=== PATIENT | male | born 1940 | race Caucasian/White ===

== ENCOUNTER → 2017-05-31 | Outpatient (CLI) | payer MEDICARE ==
[2017-05-31 08:33] LABS: Appearance,Urine Clear (Clear); Bilirubin,Urine Negative (Negative); Blood,Urine Negative (Negative); Color,Urine Light Yellow; Glucose,Urine (UA) Negative (Negative); Ketones,Urine Negative (Negative); Leukocyte Esterase,Urine Negative (Negative); Nitrite,Urine Negative (Negative); PH, Urine 5.5 (5.0-8.0); Protein,Urine Negative (Negative); Specific Gravity,Urine 1.011 (1.001-1.035); Urobilinogen,Urine <2.0 mg/dL (<2.0)
[2017-05-31 08:37] LABS: Basophils % (A) 0 %; Eosinophils # (A) 0.2 k/uL (0-0.7); Eosinophils % (A) 2 %; HCT 46.4 % (39.0-53.0); HGB 15.1 gm/dL (13.0-17.5); Lymphocytes # (A) 2.2 k/uL (1.0-4.8); Lymphocytes % (A) 25 %; MCH 30.8 pg (25.0-35.0); MCHC 32.5 g/dL (31.0-37.0); MCV 94.6 fL (80.0-100.0); Mean Platelet Volume 7.6; Monocytes # (A) 0.5 k/uL (0-1.0); Monocytes % (A) 6 %; Neutrophils # (A) 5.7 k/uL (1.3-7.7); Neutrophils % (A) 65 %; Platelet Count 264 k/uL (150-450); RDW 13.2 % (11.5-15.5); WBC 8.8 k/uL (3.8-10.6)
[2017-05-31 08:52] LABS: Potassium 5.2 mmol/L (3.5-5.1)
== END | disposition home or self-care (01) ==
LOC: LABPAT 07:37
PROVIDERS: ATTEND Surgery
DX: Z01.818 Encounter for other preprocedural examination (principal); I10 Essential (primary) hypertension; E11.9 Type 2 diabetes mellitus without complications; I74.3 Embolism and thrombosis of arteries of the lower extremities; I25.2 Old myocardial infarction
CPT/HCPCS: 36415; 80051; 81003; 82565; 82947; 84520; 85025; 86850; 86900; 86901; 93005

== ENCOUNTER 2017-06-07 05:32 | Inpatient (IN) | payer MEDICARE ==
[2017-05-30 17:44] VITALS: BMI 29.9
[~2017-06-07 05:32] MED LIST: ceFAZolin IN SWFI 2 GM/20 ML SYRINGE IVP ONE
[2017-06-07] MEDS ORDERED: LIDOCAINE 1% 20 ML VIAL (10MG/ML) FOR IV START INTRADERMA PRN (05:47)
[2017-06-07] MEDS ORDERED: SCOPOLAMINE 1.5MG/72HR PATCH TRANSDERM ONE (05:47)
[2017-06-07] MEDS ORDERED: ONDANSETRON ODT 4 MG TAB PO ONE (05:47)
[2017-06-07] MEDS ORDERED: MIDAZOLAM 2 MG/2 ML VIAL IV PRN (05:47)
[2017-06-07] MEDS ORDERED: DEXAMETHASONE SOD PHOSPHATE 10 MG/ML 1 ML VIAL IV ONE (05:47)
[2017-06-07] MEDS ORDERED: MORPHINE SULFATE 4 MG/0.8 ML SYRINGE (INJ) IV PRN (05:47)
[2017-06-07] MEDS: LACTATED RINGERS 1,000 ML IV SCH ×2 (06:45→23:11)
[2017-06-07 06:55] LABS: Glucose,Whole Blood 178 mg/dL (75-99)
[2017-06-07] MEDS ORDERED: ePHEDrine SULFATE/0.9% NACL/PF 50 MG/5 ML SYRINGE IV ONE (07:30)
[2017-06-07] MEDS ORDERED: SODIUM CHLORIDE 0.9% 500 ML with HEPARIN SODIUM,PORCINE 5,000 UNIT IRRIGATION ONE ×2 (07:30)
[2017-06-07] MEDS ORDERED: fentaNYL (PF) 50 MCG/ML 2 ML AMP ONE (07:30)
[2017-06-07] MEDS ORDERED: GLYCOPYRROLATE 0.2 MG/ML 2 ML VIAL ONE (07:30)
[2017-06-07] MEDS ORDERED: MIDAZOLAM 2 MG/2 ML VIAL ONE (07:30)
[2017-06-07] MEDS ORDERED: SUCCINYLCHOLINE CHLORIDE 100 MG/5 ML SYR IV ONE (07:30)
[2017-06-07] MEDS ORDERED: ROCURONIUM BROMIDE 10 MG/ML 10 ML VIAL IV ONE (07:30)
[2017-06-07] MEDS ORDERED: PROTAMINE SULFATE 10 MG/ML 5 ML VIAL IV ONE (07:30)
[2017-06-07] MEDS ORDERED: PHENYLEPHRINE-0.9% NACL SYG 1 MG/10 ML SYRINGE ONE (07:30)
[2017-06-07] MEDS ORDERED: LIDOCAINE 1% INJ 10MG/ML (20 ML MDV) ONE (07:30)
[2017-06-07] MEDS ORDERED: THROMBIN (BOVINE) 5,000 UNIT VIAL TOPICAL ONE (07:30)
[2017-06-07] MEDS ORDERED: HEPARIN SODIUM,PORCINE 10,000 UNIT/ML 1 ML VIAL ONE (07:30)
[2017-06-07] MEDS ORDERED: PROPOFOL 10 MG/ML 20 ML VIAL IV ONE (07:30)
[2017-06-07] MEDS ORDERED: NEOSTIGMINE 1 MG/ML 10 ML VIAL ONE (07:30)
[2017-06-07] MEDS ORDERED: ceFAZolin IN SWFI 2 GM/20 ML SYRINGE IVP ONE (07:40)
[2017-06-07] MEDS ORDERED: LACTATED RINGERS 1,000 ML IV ONE ×3 (08:13→15:01)
[2017-06-07] MEDS ORDERED: SODIUM CHLORIDE 0.9% 50 ML with ceFAZolin 2,000 MG IV ONE ×2 (11:27)
[2017-06-07] MEDS ORDERED: MORPHINE SULFATE 4MG/4ML SYRG IVP ONE (13:48)
[2017-06-07] MEDS ORDERED: MEPERIDINE 50 MG/ML SYRINGE IVP ONE (14:21)
--- NOTE | 2017-06-07 16:12 | P.OP ---
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 Procedure(s) Performed: Right femoral to posterior tibial in situ vein bypass graft Right common femoral endarterectomy. Implants: None Anesthesia: spinal (With conversion to general.) Surgeon: Manas Clemons Estimated Blood Loss (ml): 250 (ml) Pathology: other (right common femoral plaque) Disposition: floor Indications for Procedure: Severe lifestyle limiting right calf claudication Description of Procedure: Patient was brought the upper and placed in supine position. He receiveds anesthetic delivered by the department of anesthesiology. Patient did receive intravenously administered prophylactic antibiotics in the perioperative phase. Gao catheter is placed to gravity drainage. The right lower extremity sterilely prepped and draped in the usual manner. A skin incision was made over the right femoral artery and carried down through subjacent tissues. The lymphatic layer was divided laterally swept medially. Hemostasis was achieved using electrocautery. The femoral artery was identified. Artery was dissected free of investing tissues. This was found to be the proximal portion of the superficial femoral artery. No pulse was noted within the superficial femoral artery. The dissection was then carried cephalad. The profundus femoris was identified dissected free of investing tissues and encircled Vesseloops. The common femoral artery was then dissected free of investing tissues up to the inguinal ligament. It was encircled with Vesseloops proximally. Significant posterior plaquing was identified. The right great saphenous vein was identified in its proximal portion. It was dissected free of investing tissues. The vein appeared adequate for bypass purposes. Side branches were doubly ligated with silk suture and divided between the ligatures. The confluence of the great saphenous vein with the common femoral vein was identified. The vein was mobilized as far distally as possible. The wound was then packed with antibiotic-soaked gauze and attention was turned to the calf area. A skin incision was made along the medial aspect of the right calf in its proximal mid segment. Care was taken to avoid injury to the great saphenous vein. Incision was deepened through subjacent tissues. The distal popliteal space was entered and the distal popliteal and proximal tibial arterial segments was identified. These vessels were without pulse. Review angiogram had demonstrated the posterior tibial artery to be a good target vessel. The artery was identified in its mid calf segment. It was at this level of the artery was soft and pliable. The artery was then encircled with Vesseloops both proximally and distally. Crossing veins were either doubly ligated with silk suture or clipped with vascular clips and divided. The great saphenous vein at the distal portion of the calf incision was identified and dissected free of investing tissues. The vein appeared adequate for bypass purposes. It was divided as far distally as possible after being clipped with vascular clips. It was marked to avoid any potential twisting in the future. We then mobilized as far proximal as possible. Attention was turned to the inguinal incision. The patient was systemically heparinized and ACT is were drawn and followed. Repeat heparin dosage was given as appropriate based on repeat ACT results. Peak ACT was 260. The great saphenous vein and its confluence with the deep system was identified. It was clamped with a hemostat and divided. The venotomy was oversewn with 6-0 Prolene suture. The great saphenous vein was mobilized as far distally as possible. Was clear that it would not reach the common femoral artery and as such it was necessary to perform an endarterectomy on the common femoral artery and into the superficial femoral artery where the vein would reach without undue tension. As such a vascular clamp was utilized to occlude the common femoral artery at the inguinal ligament. Vesseloops around the profundus were drawn closed and arteriotomy was made in the common and extended from the proximal common down into the proximal 3 cm of the superficial femoral artery. Endarterectomy was then performed on the segment. The plaque was sent to pathology. The remaining luminal surface was inspected for any loose or free- floating material and this was removed. Arteriotomy closure with 5-0 Prolene suture was completed through the common femoral artery length. The anastomotic line was tested and 2 points of bleeding were identified and these were controlled with Prolene suture. Good inflow was noted. The great saphenous vein was inspected. First valve was lysed under direct visualization. The vein reach the femoral artery an end-to-side anastomosis between the artery and the vein was performed with 6-0 Prolene suture. Just prior to completion of the anastomotic line the artery was flushed and no thrombus was retrieved. The anastomotic line was completed and flow was restored through the common femoral and profundus and into the vein bypass graft. Excellent pulse was identified. Attention was turned to the distal end of the vein graft where a LeMaitre valvulotome was passed from the distal aspect to the proximal portion of the vein graft. The valvulotome was then utilized to lyse the valves. Excellent pulsatile flow was identified the distal end of the vein graft. The vein graft was flushed with heparinized saline solution and occluded. Vessel loops surrounding the posterior tibial artery were drawn closed. Arteriotomy was made and extended with Pott Copeland scissors. Backbleeding was identified. The artery was then flushed with heparinized saline solution. The vein was cut the appropriate length and spatulated match the arteriotomy. End- to-side anastomosis was created with 6-0 Prolene suture. Just prior to completion of the anastomotic line the vein graft was flushed and the artery was backbled and no thrombus was retrieved in either situation. The anastomotic line was completed and flow was then restored through the vein graft and the artery. Wave Doppler demonstrated good biphasic flow characteristics. Real-time ultrasound was then utilized to interrogate the great saphenous vein looking for any patent side branches. Where identified skin monisha was made. At each skin monisha a skin incision was made carried down through the subcu change tissues to the level of the vein was reached. Side branches were then ligated with silk suture. All wounds were inspected for hemostasis. There was stasis was judged to be adequate. The overall irrigated with antibiotic containing solution. A deep tissues were closed in multiple layers in the inguinal area and skin was reapproximated with a running intradermal suture of 4-0 Vicryl. Steri-Strips were applied. All other wounds were treated with 3-0 Vicryl suture to close the deep tissues and skin edges were reapproximated with skin honey. Proper dressings were applied. Patient tolerated the procedure well and was transferred to the recovery area satisfactory and stable condition.
[2017-06-07] MEDS: ceFAZolin IN SWFI 2 GM/20 ML SYRINGE IVP SCH ×2 (16:39→23:17)
[2017-06-07] MEDS: HEPARIN SODIUM,PORCINE 5,000 UNIT/ML 1 ML VIAL SQ SCH ×2 (16:39→23:18)
[2017-06-07] MEDS: HYDROcodone/APAP 7.5-325MG 1 EACH TAB PO PRN (16:40)
[2017-06-07] MEDS: glipiZIDE 10 MG TAB PO SCH (16:40)
[2017-06-07] MEDS: ONDANSETRON 4 MG/2 ML VIAL IVP PRN (17:58)
[2017-06-07] MEDS: SODIUM CHLORIDE 0.9% 1,000 ML IV SCH (17:58)
[2017-06-07 18:06] LABS: Glucose,Whole Blood 195 mg/dL (75-99)
[2017-06-07] MEDS: METOPROLOL TARTRATE 50 MG TAB PO SCH (19:52)
[2017-06-07] MEDS: ATORVASTATIN 40 MG TAB PO SCH (19:52)
[2017-06-07 21:13] LABS: Glucose,Whole Blood 181 mg/dL (75-99)
[2017-06-08] MEDS: HYDROcodone/APAP 7.5-325MG 1 EACH TAB PO PRN ×3 (03:22→21:14)
[2017-06-08 06:09] LABS: HCT 37.3 % (39.0-53.0); MCH 29.6 pg (25.0-35.0); MCHC 30.8 g/dL (31.0-37.0); Mean Platelet Volume 9.2; Platelet Count 196 k/uL (150-450); RBC 3.88 m/uL (4.30-5.90); RDW 13.4 % (11.5-15.5); WBC 9.9 k/uL (3.8-10.6)
[2017-06-08 06:16] LABS: HGB 11.5 gm/dL (13.0-17.5)
[2017-06-08 06:19] LABS: Glucose,Whole Blood 149 mg/dL (75-99)
[2017-06-08] MEDS: glipiZIDE 10 MG TAB PO SCH ×2 (06:21→17:23)
[2017-06-08] MEDS: MAGNESIUM OXIDE 400 MG TAB PO SCH (08:46)
[2017-06-08] MEDS: LINAGLIPTIN 5 MG TABLET PO SCH (08:47)
[2017-06-08] MEDS: HEPARIN SODIUM,PORCINE 5,000 UNIT/ML 1 ML VIAL SQ SCH ×3 (08:47→23:11)
[2017-06-08] MEDS: ALLOPURINOL 300 MG TAB PO SCH (08:47)
[2017-06-08] MEDS: METOPROLOL TARTRATE 50 MG TAB PO SCH ×2 (08:47→23:11)
[2017-06-08] MEDS: ASPIRIN 81 MG PO SCH (08:47)
[2017-06-08] MEDS: ceFAZolin IN SWFI 2 GM/20 ML SYRINGE IVP SCH ×3 (09:00→23:11)
[2017-06-08] MEDS ORDERED: NON-FORMULARY DRUG (Omega-3 Fatty Acids/Fish Oil [Fish Oil 1,000 Mg Softgel] 1 EACH) PO SCH (09:00)
[2017-06-08] MEDS ORDERED: EZETIMIBE 10 MG TAB PO SCH (09:00)
[2017-06-08] MEDS ORDERED: LISINOPRIL 10 MG TAB PO SCH (09:00)
[2017-06-08] MEDS ORDERED: NON-FORMULARY DRUG (Ubidecarenone [Co Q-10] 200 MG) PO SCH (09:00)
[2017-06-08] MEDS: ONDANSETRON 4 MG/2 ML VIAL IVP PRN ×2 (10:43→22:10)
[2017-06-08] MEDS ORDERED: ACETAMINOPHEN TAB 325 MG TAB PO PRN (10:52)
[2017-06-08 11:52] LABS: Glucose,Whole Blood 256 mg/dL (75-99)
--- NOTE | 2017-06-08 12:01 | P.PN ---
Subjective Progress Note Date: 06/08/17 Principal diagnosis: Postoperative day 1 right femoral tibial bypass Patient was seen and examined. Complaining of pain at the surgical sites. Also complaining of some nausea when taking pain medication. He states his pain in his right foot is improved since his surgery. Feels like he can move his toes better. He denies any fevers, chills, chest pain or shortness of breath. He does states he ambulated this morning with physical therapy. Objective - Vital Signs Vital signs: Vital Signs Temp 98.2 F 06/08/17 08:00 Pulse 105 H 06/08/17 08:00 Resp 20 06/08/17 08:00 BP 119/68 06/08/17 08:00 Pulse Ox 93 L 06/08/17 08:00 Intake & Output 06/07/17 06/08/17 06/08/17 18:59 06:59 18:59 Intake Total 2440 240 Output Total 1525 1100 Balance 915 -1100 240 Weight 96 kg Intake: IV 2200 Oral 240 240 Output: Urine 1275 1100 Estimated Blood Loss 250 Other: Voiding Method Indwelling Catheter # Voids 0 - Exam Right lower extremity surgical site dressings are intact. There is small amount of blood-tinged staining on the femoral dressing. Patient's leg is warm to touch at the medial thigh and medial knee areas. He has a palpable pulse at his bypass graft. Multiphasic signal noted in the posterior tibial artery. - Labs CBC & Chem 7: 06/08/17 05:50 06/07/17 06:45 Labs: Abnormal Lab Results - Last 24 Hours (Table) 06/07/17 06/07/17 06/08/17 Range/Units 17:57 21:11 05:50 RBC 3.88 L (4.30-5.90) m/uL Hgb 11.5 L D (13.0-17.5) gm/dL Hct 37.3 L (39.0-53.0) % MCHC 30.8 L (31.0-37.0) g/dL POC Glucose (mg/dL) 195 H 181 H (75-99) mg/dL 06/08/17 06/08/17 Range/Units 06:19 11:40 RBC (4.30-5.90) m/uL Hgb (13.0-17.5) gm/dL Hct (39.0-53.0) % MCHC (31.0-37.0) g/dL POC Glucose (mg/dL) 149 H 256 H (75-99) mg/dL Assessment and Plan Assessment: Status post right femoral-tibial bypass Plan: Discontinue Gao. Continue pain management with Tylenol and Motrin as needed. He is to continue to increase activity with ambulation in the hallway 3 times a day. Continue vascular checks. If patient is stable, ambulating and pain is controlled that he can be discharged home in 24-48 hrs. Time with Patient: Greater than 30
--- NOTE | 2017-06-08 12:07 | P.CNPUL ---
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 Patient has been a [id number] smoker over the years, but he quit about 11 months ago just prior to his open heart surgery. Recently he was evaluated for severe claudication and pain involving the right lower extremity, and he was diagnosed as having right superficial femoral popliteal and tibial artery occlusive disease with severely limiting her lifestyle claudication of the right calf. Patient underwent right femoral to posterior tibial in situ vein bypass graft, and right common femoral endarterectomy. His surgery was uneventful, I was asked to see him on consultation postoperatively considering his COPD and his left hemidiaphragm paralysis which was diagnosed recently. Patient describes intermittent episodes of shortness of breath on exertion, occasional cough and wheezing, maintained normally on albuterol and Symbicort. Denies any chest pain, no fever , no chills, no hemoptysis, today had one episode of nausea, but normally he is not nauseated. Denies any melena or hematemesis, no dysuria and no frequency no urgency. Patient again quit smoking over 11 months ago. Review of Systems 14 point review of systems were obtained, please refer to pertinent positives in HPI otherwise remaining systems are negative. Past Medical History Past Medical History: Diabetes Mellitus, Hyperlipidemia, Hypertension, Myocardial Infarction ([place]), Vascular Disorder Additional Past Medical History / Comment(s): paralysis of part of diaphragm after open heart surg., SOB w/exertion, gout Last Myocardial Infarction Date:: 2016 History of Any Multi-Drug Resistant Organisms: None Reported Past Surgical History: Coronary Bypass/CABG, Hernia Repair Additional Past Surgical History / Comment(s): quad bypass June 2016 Past Anesthesia/Blood Transfusion Reactions: No Reported Reaction Smoking Status: Former smoker - Past Family History Mother Family Medical History: Cancer Medications and Allergies Home Medications Medication Instructions Recorded Confirmed Type Allopurinol [Zyloprim] 300 mg PO DAILY 05/30/17 06/07/17 History Aspirin 81 mg PO DAILY 05/30/17 06/07/17 History Atorvastatin [Lipitor] 40 mg PO HS 05/30/17 06/07/17 History Cholecalciferol (Vitamin D3) 2,000 unit PO DAILY 05/30/17 06/07/17 History [Vitamin D3] Ezetimibe [Zetia] 10 mg PO DAILY 05/30/17 06/07/17 History Lisinopril [Zestril] 10 mg PO DAILY 05/30/17 06/07/17 History Magnesium 200 mg PO DAILY 05/30/17 06/07/17 History Metoprolol Tartrate [Lopressor] 50 mg PO BID 05/30/17 06/07/17 History [place]-3 Fatty Acids/Fish Oil [Fish 1 cap PO DAILY 05/30/17 06/07/17 History Oil 1,000 mg Softgel] Ubidecarenone [Co Q-10] 200 mg PO DAILY 05/30/17 06/07/17 History glipiZIDE [Glucotrol] 10 mg PO AC-BID 05/30/17 06/07/17 History sitaGLIPtin [Januvia] 50 mg PO DAILY 05/30/17 06/07/17 History Allergies Allergy/AdvReac Type Severity Reaction Status Date / Time No Known Allergies Allergy Verified 06/07/17 14:26 Physical Exam Vitals: Vital Signs Temp Pulse Resp BP Pulse Ox 06/08/17 08:00 98.2 F 105 H 20 119/68 93 L 06/08/17 03:42 97.3 F L 101 H 19 100/62 95 06/08/17 00:00 97.0 F L 100 18 101/51 95 06/07/17 20:00 96.9 F L 101 H 19 94/53 97 06/07/17 19:19 97.0 F L 95 18 90/54 93 L 06/07/17 15:34 95 12 98/51 92 L 06/07/17 15:04 95 12 92 L 06/07/17 14:49 96 14 98/57 95 06/07/17 14:34 96 12 82/53 93 L 06/07/17 14:19 98 12 96/55 93 L 06/07/17 14:04 98 12 118/64 93 L 06/07/17 13:49 102 H 12 95 06/07/17 13:34 97.1 F L 102 H 12 123/71 Intake and Output 06/07/17 06/08/17 06/08/17 22:59 06:59 14:59 Intake Total 540 240 Output Total 175 1100 Balance 365 -1100 240 Intake: IV 300 Oral 240 240 Output: Urine 175 1100 Other: Voiding Method Indwelling Catheter Indwelling Catheter # Voids 0 Weight 96 kg Physical Exam: Revealed a 77-year-old white male in no distress. Head: Atraumatic, normocephalic. Eyes: PERRLA, EOMI, no icterus. HEENT:[Neck is supple.] [No neck masses.] [No thyromegaly.] [No JVD.] Moist mucous membranes, throat is clear. Chest: [Diminished breath sounds at the left base, some rhonchi noted on forced expiratory maneuver only.] Cardiac Exam: [Normal S1 and S2, no S3 gallop, no murmur.] Abdomen: [Soft, nontender, no megaly, no rebound, no guarding, normal bowel sounds.] Extremities: Postsurgical changes noted in the right lower extremity, diminished distal pulses, however the calf area seems to be warm and no cyanosis noted in the foot. Neurological Exam: [No focal neurologic deficit. Psychiatric: Normal mood affect and mental status examination. Lymphatics: No lymphadenopathy Musculoskeletal: Normal range of motion, no deformities.] Results - Laboratory Findings CBC and BMP: 06/08/17 05:50 06/07/17 06:45 Abnormal lab findings: Abnormal Labs 06/07/17 06/07/17 06/07/17 06:38 17:57 21:11 RBC Hgb Hct MCHC POC Glucose (mg/dL) 178 H 195 H 181 H 06/08/17 06/08/17 06/08/17 05:50 06:19 11:40 RBC 3.88 L Hgb 11.5 L D Hct 37.3 L MCHC 30.8 L POC Glucose (mg/dL) 149 H 256 H Assessment and Plan Assessment: Impression: 1 status post right femoral to posterior tibial in situ vein bypass graft and right common femoral endarterectomy, postoperative day #1. 2 suspect moderate severe chronic obstructive pulmonary disease, patient is on proper bronchodilators for now, and that includes albuterol and Symbicort. 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 4 coronary artery disease and previous CABG in the last year. 5 hypercholesterolemia maintained on adequate medications. Type 2 diabetes. 7 benign essential hypertension 8 chronic gout Recommendation: Fully agree with the present treatment plan, will place the patient on incentive spirometry, bronchodilators in the form of Symbicort, albuterol, and would like to evaluate the patient on outpatient basis post discharge. We'll discuss the issue of his left hemidiaphragm paralysis on outpatient basis, and based on his PFT on outpatient basis, further recommendations will follow. Time with Patient: Greater than 30
[2017-06-08] MEDS: CHOLECALCIFEROL 1,000 UNIT TAB PO SCH (12:14)
[2017-06-08 13:38] LABS: Hemoglobin A1C 8.5 % (4.0-6.0)
[2017-06-08] MEDS: ALBUTEROL NEBULIZED 2.5 MG/3 ML INHALATION PRN ×2 (15:37→19:50)
[2017-06-08 16:00] LABS: Calcium 8.5 mg/dL (8.4-10.2); Potassium 4.5 mmol/L (3.5-5.1)
[2017-06-08 16:55] LABS: Glucose,Whole Blood 184 mg/dL (75-99)
[2017-06-08] MEDS: SODIUM CHLORIDE 0.9% 1,000 ML IV SCH (17:24)
[2017-06-08] MEDS: SYMBICORT 160-4.5 MCG INHALER INHALATION SCH (19:49)
[2017-06-08 20:32] VITALS: RESP 18
[2017-06-08 21:06] LABS: Glucose,Whole Blood 212 mg/dL (75-99)
[2017-06-08] MEDS: ATORVASTATIN 40 MG TAB PO SCH (21:08)
[2017-06-09] MEDS: SODIUM CHLORIDE 0.9% 1,000 ML IV SCH (01:17)
[2017-06-09 06:46] LABS: Glucose,Whole Blood 206 mg/dL (75-99)
[2017-06-09] MEDS: HYDROcodone/APAP 7.5-325MG 1 EACH TAB PO PRN (07:04)
[2017-06-09] MEDS: glipiZIDE 10 MG TAB PO SCH (07:04)
--- NOTE | 2017-06-09 08:26 | P.PN ---
Progress Note - Text Progress Note Date: 06/09/17 Subjective: No significant complaints today. Objective: Vital signs stable. Afebrile. Very minimal swelling in the leg. Incision clean and dry. No drainage. Good graft pulse. Foot warm, pink, and dry. Assessment: Good second day post reverse saphenous vein graft bypass right leg. Plan: Thoroughly instructed patient's in regards to incision care and activity limitations. Specifically discussed the need for elevation of the leg for the majority of the time for the next few weeks. Patient will follow with Dr. Jaeger in the office in about a week. We'll hold assessed roll until patient' s blood pressure is a bit higher. Patient does take his blood pressure at home.
[2017-06-09] MEDS: SYMBICORT 160-4.5 MCG INHALER INHALATION SCH (08:38)
[2017-06-09] MEDS: ASPIRIN 81 MG PO SCH (10:36)
[2017-06-09] MEDS: HEPARIN SODIUM,PORCINE 5,000 UNIT/ML 1 ML VIAL SQ SCH (10:37)
[2017-06-09] MEDS: ALLOPURINOL 300 MG TAB PO SCH (10:37)
[2017-06-09] MEDS: CHOLECALCIFEROL 1,000 UNIT TAB PO SCH (10:38)
[2017-06-09] MEDS: METOPROLOL TARTRATE 50 MG TAB PO SCH (10:38)
[2017-06-09] MEDS: MAGNESIUM OXIDE 400 MG TAB PO SCH (10:39)
[2017-06-09] MEDS: LINAGLIPTIN 5 MG TABLET PO SCH (10:39)
[2017-06-09 11:11] VITALS: TEMP 97.5
[2017-06-09 11:42] LABS: Glucose,Whole Blood 132 mg/dL (75-99)
[2017-06-09 12:53] VITALS: BP 110/59; PULSE 94
--- NOTE | 2017-07-19 15:20 | P.DS ---
Providers Date of admission: 06/07/17 05:32 Expected date of discharge: 06/09/17 Attending physician: Manas Clemons, Consults: 06/07/17 13:28 Consult Physician Routine Consulting Provider: David Barry Consult Reason/Comments: medical mgt\ Do you want consulting provider notified?: Yes 06/07/17 14:51 Consult Physician Routine Consulting Provider: Jun Kelley Consult Reason/Comments: surgical management Do you want consulting provider notified?: Yes Primary care physician: Blake Rivas MD Hospital Course: Patient was admitted to the hospital. He was evaluated by the department of anesthesiology and deemed a suitable anesthetic risk. On the day of admission is taken the operating room where a right femoral to posterior tibial in situ vein bypass graft was performed. Postoperatively the patient did well and diet was advanced tolerated. The patient was started and physical therapy. The remainder of his hospital course was unremarkable. Procedures: Right femoral to posterior tibial in situ vein bypass graft. Patient Condition at Discharge: Good Plan - Discharge Summary Discharge Rx Participant: Yes New Discharge Prescriptions: New HYDROcodone/APAP 7.5-325MG [[place] 7.5-325] 1 each PO Q6H PRN #30 tab PRN Reason: Pain Continue Atorvastatin [Lipitor] 40 mg PO HS sitaGLIPtin [Januvia] 50 mg PO DAILY glipiZIDE [Glucotrol] 10 mg PO AC-BID Metoprolol Tartrate [Lopressor] 50 mg PO BID Allopurinol [Zyloprim] 300 mg PO DAILY Ezetimibe [Zetia] 10 mg PO DAILY Aspirin 81 mg PO DAILY Ubidecarenone [Co Q-10] 200 mg PO DAILY [place]-3 Fatty Acids/Fish Oil [Fish Oil 1,000 mg Softgel] 1 cap PO DAILY Magnesium 200 mg PO DAILY Cholecalciferol (Vitamin D3) [Vitamin D3] 2,000 unit PO DAILY Discontinued Lisinopril [Zestril] 10 mg PO DAILY Discharge Medication List Allopurinol [Zyloprim] 300 mg PO DAILY 05/30/17 [History] Aspirin 81 mg PO DAILY 05/30/17 [History] Atorvastatin [Lipitor] 40 mg PO HS 05/30/17 [History] Cholecalciferol (Vitamin D3) [Vitamin D3] 2,000 unit PO DAILY 05/30/17 [History] Ezetimibe [Zetia] 10 mg PO DAILY 05/30/17 [History] Magnesium 200 mg PO DAILY 05/30/17 [History] Metoprolol Tartrate [Lopressor] 50 mg PO BID 05/30/17 [History] [place]-3 Fatty Acids/Fish Oil [Fish Oil 1,000 mg Softgel] 1 cap PO DAILY [History] Ubidecarenone [Co Q-10] 200 mg PO DAILY 05/30/17 [History] glipiZIDE [Glucotrol] 10 mg PO AC-BID 05/30/17 [History] sitaGLIPtin [Januvia] 50 mg PO DAILY 05/30/17 [History] HYDROcodone/APAP 7.5-325MG [[place] 7.5-325] 1 each PO Q6H PRN #30 tab 06/09/17 [ Rx] Follow up Appointment(s)/Referral(s): Ben Grewal MD [STAFF PHYSICIAN] - 06/15/17 9:00 am (Sunday) Manas Clemons DO [Doctor of Osteopathic Medicine] - 06/14/17 1:30 pm ( ) Blake Rivas MD [Primary Care Provider] - 06/12/17 9:45 am (Sunday) Patient Instructions/Handouts: Femoropopliteal Bypass (DC) Activity/Diet/Wound Care/Special Instructions: MUST have right leg elevated at all times above the level of the heart except when sitting up to eat or ambulating for short periods of time. May shower, no tub baths or hot tubs. Staple removal to be done by Dr. Clemons. Call office if temp > 101F or significant drainage from incisions Home Care - [facility] - [phone] Discharge Disposition: HOME WITH HOME HEALTH SERVICES
== END 2017-06-09 13:55 | disposition home health service (06) | DRG 272 ==
LOC: 2ORMAIN 05:32 → 6SEL 14:41
PROVIDERS: ADMIT Surgery; ATTEND Surgery
PROC: 04CK3ZZ Extirpation of Matter from Right Femoral Artery, Percutaneous Approach (ICD-10-PCS; principal; 2017-06-07 07:30)
PROC: 041 Lower Arteries, Bypass (ICD-10-PCS; principal; 2017-06-07 07:30)
DX: I70.211 Atherosclerosis of native arteries of extremities with intermittent claudication, right leg (principal); E11.51 Type 2 diabetes mellitus with diabetic peripheral angiopathy without gangrene; J44.9 Chronic obstructive pulmonary disease, unspecified; J98.6 Disorders of diaphragm; I10 Essential (primary) hypertension; E78.00 Pure hypercholesterolemia, unspecified; I25.10 Atherosclerotic heart disease of native coronary artery without angina pectoris; M1A.9XX0 Chronic gout, unspecified, without tophus (tophi); Z95.1 Presence of aortocoronary bypass graft; Z87.891 Personal history of nicotine dependence; I25.2 Old myocardial infarction; Z87.19 Personal history of other diseases of the digestive system; Z79.899 Other long term (current) drug therapy; Z79.82 Long term (current) use of aspirin; Z79.84 Long term (current) use of oral hypoglycemic drugs
CPT/HCPCS: 80048; 83036; 84132; 85027; 86850; 86900; 86901; 88304; 88311; 94640; 94760

== ENCOUNTER → 2017-06-28 | Outpatient (CLI) | payer MEDICARE ==
[2017-06-28 13:10] LABS: Basophils # (A) 0.1 k/uL (0-0.2); Basophils % (A) 1 %; Eosinophils # (A) 0.3 k/uL (0-0.7); Eosinophils % (A) 3 %; HCT 41.9 % (39.0-53.0); HGB 13.4 gm/dL (13.0-17.5); Hypochromasia Slight; Lymphocytes % (A) 24 %; MCH 30.8 pg (25.0-35.0); MCHC 31.9 g/dL (31.0-37.0); MCV 96.5 fL (80.0-100.0); Mean Platelet Volume 6.7; Monocytes # (A) 0.5 k/uL (0-1.0); Monocytes % (A) 6 %; Neutrophils # (A) 5.5 k/uL (1.3-7.7); Neutrophils % (A) 64 %; Platelet Count 337 k/uL (150-450); RBC 4.34 m/uL (4.30-5.90); RDW 14.2 % (11.5-15.5); WBC 8.5 k/uL (3.8-10.6)
[2017-06-28 13:22] LABS: Potassium 5.4 mmol/L (3.5-5.1)
[2017-06-28 13:40] LABS: Appearance,Urine Clear (Clear); Bilirubin,Urine Negative (Negative); Blood,Urine Negative (Negative); Color,Urine Yellow; Glucose,Urine (UA) 3+ (Negative); Ketones,Urine Negative (Negative); Leukocyte Esterase,Urine Negative (Negative); Nitrite,Urine Negative (Negative); PH, Urine 5.5 (5.0-8.0); Protein,Urine Negative (Negative); Specific Gravity,Urine 1.014 (1.001-1.035); Urobilinogen,Urine <2.0 mg/dL (<2.0)
== END | disposition home or self-care (01) ==
LOC: LABPAT 12:25
PROVIDERS: ATTEND Surgery
DX: Z01.812 Encounter for preprocedural laboratory examination (principal); I70.213 Atherosclerosis of native arteries of extremities with intermittent claudication, bilateral legs
CPT/HCPCS: 80051; 81003; 82565; 84520; 85025; 86850; 86900; 86901